=== PATIENT | female | born 1965 | race Caucasian/White ===

== ENCOUNTER → 2023-08-11 | Outpatient (CLI) | payer OTHER ==
[~2023-08-11] MED LIST: GARLIC200 MG; MULVITA PO; VITAMIN D310 MC4
[2023-08-25 10:42] LABS: HPV GENOTYPE 16 Not Detected; HPV GENOTYPE 18 Not Detected; HPV HIGH RISK Not Detected; HPV SOURCE Cervical
== END ==
LOC: LAB 16:40 → LAB SHORT 16:40
PROVIDERS: Registered Nurse
DX: Z01.419 Encounter for gynecological examination (general) (routine) without abnormal findings (principal)
CPT/HCPCS: 87624; G0123

== ENCOUNTER 2023-08-13 06:06 | Day surgery (SDC) | payer OTHER ==
[2023-08-13] VITALS (10 sets, daily range): BP systolic 114–145; BP diastolic 57–76
[~2023-08-13] VITALS: Ht 162.6 cm; Wt 92.4 kg
--- NOTE | 2023-08-13 06:35 | NUR ---
PT TO DAY SURGERY FOR MEDIPORT PLACEMENT. PLAN OF CARE DISCUSSED. PT GRANT IS HERE IN HOSPITAL.
--- NOTE | 2023-08-13 09:41 | NUR ---
0946 PT DISCHARGED HOME IV DCD CATH INTACT, STEADY GATE IN DAYSURG PT DENIES NAUSEA AND VOMITING DISCHARGE INSTRUCTIONS GIVEN WITH RX
== END 2023-08-13 22:59 | disposition home or self-care (01) ==
LOC: ORSCMMR 06:06 → ORD 07:30 → ORSCMMR 07:30
PROVIDERS: Surgery
PROC: 0JH60WZ Insertion of Totally Implantable Vascular Access Device into Chest Subcutaneous Tissue and Fascia, Open Approach (ICD-10-PCS; principal; 2023-08-13 07:30)
DX: C50.812 Malignant neoplasm of overlapping sites of left female breast (principal); E66.9 Obesity, unspecified; Z68.35 Body mass index [BMI] 35.0-35.9, adult
CPT/HCPCS: 77001; C1788; J0690; J1100; J1642; J1885; J2250; J2371; J2405; J2704; J3010; J7120

== ENCOUNTER 2024-01-17 08:59 | Day surgery (SDC) | payer OTHER | END 2024-01-17 22:43 | disposition home or self-care (01) | LOC: MOI US 08:59 | DX: C50.412 Malignant neoplasm of upper-outer quadrant of left female breast (principal); C50.411 Malignant neoplasm of upper-outer quadrant of right female breast | CPT/HCPCS: 19281; 19282; 19285; 38505; 77065; A4648 ==